=== PATIENT | male | born 1975 | race Caucasian/White ===

== ENCOUNTER 2019-03-21 07:26 | Emergency (ER) | payer BC, SELFPAY ==
[2019-03-21 07:27] VITALS: BP 136/94; PULSE 96; RESP 18; TEMP 36.5; O2SAT 97; BMI 29.2
--- NOTE | 2019-03-21 08:12 | US_ITS ---
STUDY: SUPERFICIAL ULTRASOUND - REASON FOR EXAM: Male, 44 years old. TECHNIQUE: A superficial ultrasound was performed with real-time and static brenner-scale imaging. COMPARISON: None. FINDINGS: Ultrasound of the penis revealed both corpora cavernosa are delineated without evidence of disruption. The corpora spongiosa is intact . There is evidence of hematoma subcutaneously located mainly in the distal aspect of the penis with a significant ecchymosis. US/Testicular with Arterial Flow IMPRESSION: Evidence of hematoma and ecchymosis of the penis mainly in the distal aspect. No judy penile fracture is noted. Clinical assessment and follow up indicated. Electronically Signed: Ijeoma Saab, at 10:12 EDT Tel , Service support ,
--- NOTE | 2019-03-21 08:14 | ED.VIS.GEN ---
History of Present Illness Chief Complaint: Male Pain/Injury Informant: Patient Onset: Today Context: Sudden Onset - awoke w/ sx Timing: Continuous Quality: pain, swelling, bruising Location: penile shaft Current Severity: Severe Maximum Severity: Severe Worsened by: palpation Relieved by: nothing; tried ibuprofen Associated Symptoms: none Narrative: Patient states he had relatively uneventful vaginal intercourse last night with no symptoms or pain. He woke up this morning with pain, swelling, bruising of the penile shaft and is concerned he fractured it. He has never had any issues with his genitals before. He denies any scrotal or testicular pain or swelling. No abdominal symptoms. No hematuria. Past Medical History - Allergies and Home Meds Allergies/Adverse Reactions: Allergies No Known Allergies Allergy (Verified 03/21/19 07:29) Smoking Status: Current every day smoker Drugs: None Review of Systems General: Denies: Chills, Fever Gastrointestinal: Denies: Abdominal pain, Nausea, Vomiting Genitourinary: Reports: - - penile shaft pain/swelling; no testicular sx. Denies: Dysuria, Hematuria, Frequency Physical Exam Vital Signs/Narrative: Vital Signs Temp Pulse Resp BP Pulse Ox 03/21/19 07:27 97.7 F L 96 18 136/94 H 97 Inital Vital Signs reviewed: Yes General: Well nourished, Well developed, No Acute Distress Head: Normocephalic, Atraumatic : - - See skin exam also. Swelling, tenderness, ecchymosis throughout the distal half of penile shaft. Normal glands. Normal urethral meatus with no blood or discharge. No deformity. Penis is flaccid. Testicles/scrotum normal, nontender. Skin: Normal color, No rash, Trauma - ecchymosis and swelling throughout distal 1/2 of penile shaft, stopping at fontana radiata/glans which is uninvolved. skin intact. Neurological: Alert, Oriented x3, Cranial nerves II-XII grossly intact, Normal Strength, Normal Sensation Psychological: Normal affect, Normal Mood Diagnostic/Tx/Re-eval Clinical Impression(s) from Imaging Studies Testicular Ultrasound 03/21/19 08:12 IMPRESSION: Evidence of hematoma and ecchymosis of the penis mainly in the distal aspect. No judy penile fracture is noted. Clinical assessment and follow up indicated. Electronically Signed: Ijeoma Saab, at 10:12 EDT Tel , Service support , - Medical Decision Making The radiologist performed the ultrasound himself and called me with the results, he felt confident there is no disruption of the corpus cavernosus or corpus spongiosum. The patient does not clinically have hematuria. He sees evidence of subcutaneous hematoma, which clinically is what it looks like as well. There is no clinical deformity. Given this, I feel he is stable to follow-up with urology as an outpatient, there is no one consulting sales manager today so I was not able to discuss with anyone, but he was given their information. ED Disposition - Plan for ED Patient: Disposition: Home or Assisted Living Diagnosis: Contusion of penis, initial encounter Referrals: Kris Mckeon MD [STAFF PHYSICIAN] - As soon as possible (call for appt) Additional Instructions: -Use ice pack as needed, as well as prescription medication, which you should not drive or work after taking. Otherwise, use Tylenol/ibuprofen. -Avoid erections and intercourse until seen by urology. -Call for urologic follow-up appointment to be seen as soon as able. -If you have any other new associated issues, return to the ER.
[2019-03-21] MEDS: Acetaminophen 325 MG Tablet 650 MG PO (08:38)
== END 2019-03-21 10:58 | disposition home or self-care (01) ==
PROVIDERS: Emergency Provider Emergency Medicine
DX: S30.21XA Contusion of penis, initial encounter (principal); F17.200 Nicotine dependence, unspecified, uncomplicated; X58.XXXA Exposure to other specified factors, initial encounter; Y93.89 Activity, other specified; Y92.009 Unspecified place in unspecified non-institutional (private) residence as the place of occurrence of the external cause; Y99.8 Other external cause status
CPT/HCPCS: 76870; 93976; 99283

== ENCOUNTER 2019-12-02 14:48 | Emergency (ER) | payer BC, SELFPAY ==
[2019-12-02 14:50] VITALS: BP 118/82; PULSE 97; RESP 18; TEMP 36.6; O2SAT 97; BMI 26.4
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
[2019-12-02 16:24] VITALS: RESP 16
--- NOTE | 2019-12-02 16:24 | ED.RN ---
REVIEWED D/C INSTRUCTIONS, FOLLOW UP CARE, AND S/S THAT WOULD WARRANT A RETURN TO THE ED WITH PT. PT VERBALIZED AN UNDERSTANDING AND DENIES FURTHER QUESTIONS FOR THIS RN. PT SKIN P/W/D, RESP EVEN AND UNLABORED, PT A&O X 3, NO DISTRESS NOTED. PT AMBULATED OUT OF ED, GAIT STEADY.
== END 2019-12-02 16:26 | disposition home or self-care (01) ==
LOC: ED 16:19
PROVIDERS: Emergency Provider Physician Assistant Medical
DX: S06.0X0A Concussion without loss of consciousness, initial encounter (principal); S40.012A Contusion of left shoulder, initial encounter; S60.222A Contusion of left hand, initial encounter; V43.52XA Car driver injured in collision with other type car in traffic accident, initial encounter; Y93.I9 Activity, other involving external motion; Y92.411 Interstate highway as the place of occurrence of the external cause; Y99.8 Other external cause status
CPT/HCPCS: 70450; 73030; 73130; 99282

== ENCOUNTER → 2024-01-06 | Outpatient (CLI) | payer BC, SELFPAY ==
--- NOTE | 2024-01-06 08:12 | AAAS_ITS ---
Reason For Study: Encounter for screening for cardiovascular disorders Aorta Measurements Aorta Doppler Measurements Proximal aorta measures2.50 x 2.52cm. in cross- Peak systolic flow velocities within the proximal sectional axis. aorta measure 44.3 cm/sec. Proximal aorta measures2.49cm. in longitudinal Peak systolic flow velocities within the mid aorta axis. measure 56.6 cm/sec. Mid aorta measures2.00 x 1.91cm. in cross- Peak systolic flow velocities within the distal sectional axis. aorta measure 58.4 cm/sec. Mid aorta measures1.95cm. in longitudinal axis. Distal aorta measures2.40 x 2.21cm. in cross- sectional axis. Distal aorta measures2.30cm. in longitudinal axis. Left Iliac Artery Left iliac artery measures 1.60 x 1.59 cm. in the cross-sectional axis. Left iliac artery measures 1.44 cm. in the longitudinal axis. Peak systolic velocity in the left iliac artery measures 68.0 cm/sec. Right Iliac Artery Right iliac artery measures 1.67 x 1.49 cm. in the cross-sectional axis. Right iliac artery measures 1.42 cm. in the longitudinal axis. Peak systolic velocity in the right iliac artery measures 62.7 cm/sec. Procedure Aorta IVC Iliac vasculature or bypass grafts [id number]. Exam performed in department. VL/AAA Screening Interpretation Summary Aorta patent, normal caliber Right iliac artery patent with 1.6 cm ectasia present Left iliac artery patent with 1.67 cm ectasia present Ordering Physician: Karl Bal Referring Physician: Karl Bal Performed By: Wendy Toney, URIAH, RVT
[2024-01-06 08:45] LABS: Absolute Neutrophil Count 4.7 X10^3/uL (2.0-7.7); Basophil# 0.09 X10^3/uL; Basophil% 1.1 % (0-1); Eosinophil# 0.45 X10^3/uL; Eosinophils% 5.3 % (0-5); Hematocrit 47.1 % (40-54); Lymphocyte % 29.6 % (19-41); Mean Corpuscular Hgb 29.6 pg (27.0-32.0); Mean Corpuscular Volume 87.1 fL (80-94); Mean Platelet Vol. 10.4 fl (6.2-12.0); Monocyte# 0.71 X10^3/uL; Monocyte% 8.4 % (0-10); NRBC Flagged by Analyzer 0 % (0-5); Neutrophil # 4.67 X10^3/uL (2.7-7.7); Neutrophil % 55.2 % (47-70); Platelet Count 253 K/mm3 (150-450); RBC Distribution Width SD 40.8 fl (35.1-43.9); Red Blood Count 5.41 M/mm3 (4.6-6.2); White Blood Count 8.5 K/mm3 (4.4-11.0)
[2024-01-06 09:50] LABS: ALB/GLOB Ratio 1.1 RATIO (0.9-2.4); AST(SGOT) 18 U/L (15-37); Alanine Aminotransfer ALT/SGPT 25 U/L (16-61); Albumin, Serum 3.6 g/dL (3.2-5.0); Alkaline Phosphatase 75 U/L (45-117); Anion Gap 4 (5-15); BUN 16 mg/dL (7-18); BUN/Creat Ratio 11.9 RATIO (10-20); Calcium,Total 8.7 mg/dL (8.5-10.1); Chloride 110 mmol/L (98-107); Cholesterol 176 mg/dL (200); Creatinine, Serum 1.35 mg/dL (0.70-1.30); EST Glomerular Filtration Rate 59 mL/min (>60); Est Glom Filt Rate - Afr Amer 72 mL/min (>60); Globulin 3.4 g/dL (2.2-4.2); Glucose 105 mg/dL (74-106); High Density Lipoprotein 45 mg/dL; PSA,Total - Annual Screen 1.48 ng/mL (0.00-4.00); Potassium 4.2 mmol/L (3.5-5.1); Sodium Level 139 mmol/L (136-145); Triglycerides 114 mg/dL; Very Low Density Lipoprotein 23 mg/dL (5-40)
== END | disposition home or self-care (01) ==
PROVIDERS: PCP Nurse Practitioner Family; Referring Provider Nurse Practitioner Family; Visit Provider Nurse Practitioner Family
DX: Z00.00 Encounter for general adult medical examination without abnormal findings (principal); Z13.6 Encounter for screening for cardiovascular disorders; Z13.220 Encounter for screening for lipoid disorders
CPT/HCPCS: 36415; 76706; 80053; 80061; 84153; 85025; G0103